=== PATIENT | male | born 1980 | race Caucasian/White ===

== ENCOUNTER 2016-02-26 17:32 | Emergency (ER) | payer BC ==
[~2016-02-26] VITALS: Ht 180.3 cm; Wt 167.8 kg
[2016-02-26] MEDS ORDERED: MORPHINE SULFATE INJ 2 MG/ML DISP.SYRIN IV ONE (18:00)
[2016-02-26] MEDS ORDERED: ONDANSETRON HCL/PF 4 MG/2 ML VIAL IVP ONE (18:00)
[2016-02-26 18:16] LABS: BASOPHILS % (AUTO) 0.4 % (0.0-2.0); DIFF TOTAL % 100 %; EOSINOPHILS # (AUTO) 0.1 /CMM (0.0-0.7); EOSINOPHILS % (AUTO) 0.9 % (0.0-6.0); HEMATOCRIT 44 % (39-51); HEMOGLOBIN 14.4 g/dL (13.5-17.5); LYMPHOCYTES # (AUTO) 5.2 /CMM (0.8-4.8); LYMPHOCYTES % (AUTO) 42.2 % (20.0-44.0); MEAN CORPUSCULAR HEMOGLOBIN 28 PG (26.0-33.0); MEAN CORPUSCULAR HGB CONC 33 g/dl (31.0-36.0); MEAN CORPUSCULAR VOLUME 87 fL (80-96); MONOCYTES # (AUTO) 1.1 /CMM (0.1-1.30); MONOCYTES % (AUTO) 9.2 % (2.0-12.0); NEUTROPHILS # (AUTO) 5.9 /CMM (1.8-8.9); NEUTROPHILS % (AUTO) 47.3 % (43.0-81.0); PLATELET COUNT (AUTO) 186 /CMM (150-450); RED BLOOD CELL COUNT(AUTO) 5.06 MIL/uL (4.5-6.0); WHITE BLOOD COUNT (AUTO) 12.4 K/uL (4.3-11.0)
[2016-02-26 18:18] LABS: ANION GAP 10 (5-14); CARBON DIOXIDE 29 mmol/L (21-32); CHLORIDE 104 mmol/L (98-107); POTASSIUM 4.2 mmol/L (3.5-5.1); SODIUM SERUM 138 mmol/L (136-145)
[2016-02-26 18:22] LABS: INR 1.05 (0.87-1.13); PROTHROMBIN TIME 11.4 SECS (9.5-12.7)
[2016-02-26 18:26] LABS: CALCIUM, SERUM 8.7 mg/dL (8.5-10.1); CREATININE 1.1 mg/dL (0.6-1.3); GFR 76 mL/min (>60); GLUCOSE 131 mg/dL (74-106); UREA NITROGEN, BLOOD 11 mg/dL (7-18)
[2016-02-26 18:30] LABS: TROPONIN I < 0.017 ng/mL (0.00-0.056)
[2016-02-26] MEDS ORDERED: MORPHINE SULFATE INJ 4 MG/ML DISP.SYRIN ONE (18:31)
[2016-02-26] MEDS ORDERED: ONDANSETRON HCL/PF 4 MG/2 ML VIAL ONE (18:31)
[2016-02-26] MEDS ORDERED: IV NS 0.9% 1,000 ML BAG IV ONE (19:30)
[2016-02-26] MEDS ORDERED: ACETAMINOPHEN ES 500 MG TABLET PO ONE (19:30)
[2016-02-26] MEDS ORDERED: ACETAMINOPHEN ES 500 MG TABLET ONE (19:40)
[2016-02-26] MEDS ORDERED: IV NS 0.9% 1,000 ML ONE (19:40)
[2016-02-26] MEDS ORDERED: IV SET PRIMARY 1 EA INFUS.SET MC ONE (19:41)
[2016-02-26 20:40] VITALS: BP 121/77
== END 2016-02-26 20:40 | disposition home or self-care (01) ==
LOC: ER 17:34
DX: R55 Syncope and collapse (principal); S00.03XA Contusion of scalp, initial encounter; S09.90XA Unspecified injury of head, initial encounter; Z88.0 Allergy status to penicillin; X58.XXXA Exposure to other specified factors, initial encounter; Y93.89 Activity, other specified; Y92.89 Other specified places as the place of occurrence of the external cause; Y99.8 Other external cause status
CPT/HCPCS: 36415; 70450-TC; 71010-TC; 72070-TC; 72125-TC; 80048-TC; 84484-TC; 85025-TC; 85730-TC; A4606; G6040-TC; J2270; J2405; J7030; Z7610

== ENCOUNTER 2016-02-28 01:25 | Inpatient (IN) | payer BC ==
[~2016-02-28] VITALS: Ht 180.3 cm; Wt 167.8 kg
[2016-02-28] MEDS ORDERED: IV NS 0.9% 1,000 ML ONE (02:11)
[2016-02-28] MEDS ORDERED: IV SET PRIMARY 1 EA INFUS.SET MC ONE (02:11)
[2016-02-28] MEDS ORDERED: DIAZEPAM 5 MG/ML 2 ML DISP.SYRIN ONE (02:11)
[2016-02-28] MEDS ORDERED: ONDANSETRON HCL/PF 4 MG/2 ML VIAL ONE (02:11)
[2016-02-28 02:23] LABS: BASOPHILS # (AUTO) 0.1 /CMM (0.0-0.2); BASOPHILS % (AUTO) 0.6 % (0.0-2.0); DIFF TOTAL % 100 %; EOSINOPHILS % (AUTO) 0.1 % (0.0-6.0); HEMATOCRIT 43 % (39-51); HEMOGLOBIN 14.3 g/dL (13.5-17.5); LYMPHOCYTES # (AUTO) 1.6 /CMM (0.8-4.8); LYMPHOCYTES % (AUTO) 12.8 % (20.0-44.0); MEAN CORPUSCULAR HEMOGLOBIN 28 PG (26.0-33.0); MEAN CORPUSCULAR HGB CONC 33 g/dl (31.0-36.0); MEAN CORPUSCULAR VOLUME 86 fL (80-96); MONOCYTES # (AUTO) 0.9 /CMM (0.1-1.30); MONOCYTES % (AUTO) 7.3 % (2.0-12.0); NEUTROPHILS # (AUTO) 9.9 /CMM (1.8-8.9); NEUTROPHILS % (AUTO) 79.2 % (43.0-81.0); PLATELET COUNT (AUTO) 180 /CMM (150-450); RED BLOOD CELL COUNT(AUTO) 5.02 MIL/uL (4.5-6.0); WHITE BLOOD COUNT (AUTO) 12.5 K/uL (4.3-11.0)
[2016-02-28 02:29] LABS: KETONES,URINE 1+ (NEGATIVE); LEUKOCYTE ESTERASE ,URINE NEGATIVE (NEGATIVE); PH,URINE 5.5 (5.0-8.0)
[2016-02-28] MEDS ORDERED: IV NS 0.9% 1,000 ML BAG IV ONE (02:30)
[2016-02-28] MEDS ORDERED: DIAZEPAM 5 MG/ML 2 ML DISP.SYRIN IV ONE (02:30)
[2016-02-28] MEDS ORDERED: ONDANSETRON HCL/PF 4 MG/2 ML VIAL IVP ONE (02:30)
[2016-02-28 02:32] LABS: CALCIUM, SERUM 8.6 mg/dL (8.5-10.1); CREATININE 1.1 mg/dL (0.6-1.3); POTASSIUM 4.1 mmol/L (3.5-5.1)
[2016-02-28 02:36] LABS: ADD UA MICROSCOPIC YES
[2016-02-28 02:38] LABS: ADD URINE CULTURE NO; ALBUMIN 3.2 g/dL (3.4-5.0); BILIRUBIN,DIRECT 0.1 mg/dL (0.0-0.2); BILIRUBIN,TOTAL 0.7 mg/dL (0.2-1.0); INDIRECT BILIRUBIN 0.6 mg/dL (0.0-1.1); MUCUS,URINE Moderate /LPF (None Seen); RBC,URINE 0-2 /HPF (0-2); WBC,URINE 0-2 /HPF (0-3)
[2016-02-28 02:43] LABS: TROPONIN I 0.298 ng/mL (0.00-0.056)
[2016-02-28 02:44] LABS: INR 1.14 (0.87-1.13); PROTHROMBIN TIME 12.3 SECS (9.5-12.7)
[2016-02-28] MEDS ORDERED: AZITHROMYCIN 500 MG VIAL ONE (02:53)
[2016-02-28] MEDS ORDERED: ASPIRIN 325 MG TABLET ONE (02:53)
[2016-02-28] MEDS ORDERED: CEFTRIAXONE 1GM BAG (ER ONLY) 50 ML IV ONE (02:53)
[2016-02-28] MEDS ORDERED: IV D5W 250 ML IV ONE (02:54)
[2016-02-28] MEDS ORDERED: IV SET PRIMARY PUMP SET 1 EA INFUS.SET MC ONE ×3 (02:54→05:34)
[2016-02-28] MEDS ORDERED: CEFTRIAXONE 1GM BAG (ER ONLY) 1 GM/50 ML PIGGYBACK IV ONE (03:00)
[2016-02-28] MEDS ORDERED: ASPIRIN 325 MG TABLET PO ONE (03:00)
[2016-02-28] MEDS ORDERED: AZITHROMYCIN 500 MG in IV D5W 250 ML IV ONE (03:00)
[2016-02-28 03:45] VITALS: BP 121/70
[2016-02-28] MEDS ORDERED: LEVOFLOXACIN 500 MG /D5W 100ML 100 ML IV ONE (04:47)
[2016-02-28] MEDS ORDERED: LEVOFLOXACIN 500 MG /D5W 100ML 500 MG in PREMIX 1 EA IV SCH (05:00)
[2016-02-28] MEDS ORDERED: SECONDARY IV SET 1 EA INFUS.SET MC ONE (05:34)
[2016-02-28] MEDS ORDERED: IV NS 0.9% 250 ML IV ONE (05:34)
[2016-02-28] MEDS ORDERED: PANT40TA2 PO (07:35)
[2016-02-28] MEDS ORDERED: FINA1TAB PO (07:35)
[2016-02-28 08:00] VITALS: BP 102/63
[2016-02-28 08:09] LABS: CHOLESTEROL 159 mg/dL (<200); HDL CHOLESTEROL 34 mg/dL (40-60); LDL 111 mg/dL (0-99); TRIGLYCERIDES 53 mg/dL (30-150)
[2016-02-28] MEDS ORDERED: ONDANSETRON HCL/PF 4 MG/2 ML VIAL IV PRN (09:00)
[2016-02-28] MEDS ORDERED: ASPIRIN 81 MG TAB.CHEW PO SCH (09:00)
[2016-02-28] MEDS ORDERED: ACETAMINOPHEN 325 MG TABLET PO PRN (09:30)
[2016-02-28] MEDS: CARVEDILOL 3.125 MG TABLET PO SCH ×2 (10:00→11:24)
[2016-02-28 10:06] LABS: THYROID STIMULATING HORMONE 0.873 uIU/mL (0.358-3.74)
[2016-02-28] MEDS: IV NS 0.9% 1,000 ML IV PRN ×2 (10:25→14:54)
[2016-02-28 16:00] VITALS: BP 116/56
[2016-02-29] MEDS ORDERED: PANTOPRAZOLE 40 MG TABLET.DR PO SCH (09:00)
[2016-02-29] MEDS ORDERED: FINASTERIDE (5 MG) 5 MG TABLET PO SCH (09:00)
== END 2016-02-28 17:45 | disposition short-term general hospital (02) | DRG 194 ==
LOC: ER 01:30 → TELE 03:04 → MED 09:49
PROVIDERS: ADMIT Internal Medicine; ATTEND Internal Medicine
DX: J15.9 Unspecified bacterial pneumonia (principal); Z68.43 Body mass index [BMI] 50.0-59.9, adult; R55 Syncope and collapse; E66.9 Obesity, unspecified
CPT/HCPCS: 36415; 71010-TC; 80048-TC; 80061-TC; 80076-TC; 81000-TC; 82306; 83605-TC; 84439-TC; 84443-TC; 84484-TC; 85025-TC; 85730-TC; 87040-TC; 87081-TC; 93307-TC; 93880-TC; A4216; A4606; J0456; J0696; J1956; J2405; J3360; J7030; J7050; J7060; Z7610